=== PATIENT | female | born 1965 | race Caucasian/White ===

== ENCOUNTER 2020-06-12 19:37 | Emergency (ER) | payer MEDICARE, OTHER ==
[~2020-06-12 19:37] MED LIST: ACID REDUCER150 MG PO; ASPIR 8181 MG PO; ASPIR-LOW81 MG PO; ATORVASTATIN CA80 MG PO; CIPRO500 MG PO; DOXYCYCLINE MO100 MG PO; EFFEXOR XR 150150 MG PO; ELAVIL 25 MG TA25 MG PO; ESTRACE1 MG PO; FLEXERIL 10 MG10 MG PO; GABAPENTIN800 MG PO; HUMALOG 10100 UNITS/ SC; KLONOPIN TAB 00.5 MG PO; LANTUS INS100 UTS/M1 SQ; LANTUS100 UNIT/1 SQ; LEVAQUIN500 MG PO; LEVOFLOXACIN250 MG PO; LEVOFLOXACIN500 MG PO; NEURONTIN800 MG PO; ONDANSETRON HCL4 MG PO; PEPCID40 MG PO; PERCOCET 7.5-31 EACH PO; PLAVIX75 MG PO; PRAVACHOL40 MG PO; PRILOSEC OTC20 MG PO; ROBAXIN 750 MG750 MG PO; ROBAXIN-750750 MG PO; SERTRALINE HCL100 MG PO; SERTRALINE HCL50 MG PO; TRAZODONE HCL50 MG PO; VITAMIN D5000 UNIT PO; ZANAFLEX4 M1 PO; ZOFRAN ODT 4 MG4 MG SL; ZOLOFT100 MG PO
[2020-06-12 21:24] LABS: HEMOGLOBIN 12.4 gm/dl (12.3-15.3); RED BLOOD COUNT 4.32 M/UL (4.00-5.10); WHITE BLOOD COUNT 8.2 K/UL (4.5-11.0)
[2020-06-12 21:35] LABS: BUN/CREATININE RATIO 14 (0-10)
[2020-06-12] MEDS ORDERED: ZOFRAN ODT 4 MG4 MG PO (23:40)
[2020-06-12] MEDS ORDERED: ZITHROMAX250 MG PO (23:40)
[2020-06-12] MEDS ORDERED: TESSALON PERLE100 MG PO (23:40)
== END 2020-06-13 00:25 | disposition home or self-care (01) ==
LOC: ER1 19:37
PROVIDERS: Emergency Medicine
DX: U07.1 COVID-19 (principal); J12.82 Pneumonia due to coronavirus disease 2019; J44.0 Chronic obstructive pulmonary disease with (acute) lower respiratory infection; J18.9 Pneumonia, unspecified organism; I11.9 Hypertensive heart disease without heart failure; E11.9 Type 2 diabetes mellitus without complications
CPT/HCPCS: 71045; 80053; 82550; 82553; 83735; 83874; 84484; 85025; 93005; 96374; 96375; 99285; J1885; J2405

== ENCOUNTER → 2020-09-03 | Outpatient (CLI) | payer MEDICARE, OTHER ==
[~2020-09-03] MED LIST changes: +TESSALON PERLE100 MG PO; +ZITHROMAX250 MG PO; +ZOFRAN ODT 4 MG4 MG PO
== END ==
LOC: EMI 09:28
DX: M54.16 Radiculopathy, lumbar region (principal)
CPT/HCPCS: 72148

== ENCOUNTER 2021-11-25 10:58 | Inpatient (IN) | payer MEDICARE, OTHER ==
[~2021-11-25] VITALS: Ht 167.6 cm; Wt 79.4 kg
[~2021-11-25 10:58] MED LIST changes: +AMITRIPTYLINE H25 MG PO; +CLOPIDOGREL75 MG PO; -ELAVIL 25 MG TA25 MG PO; -ROBAXIN-750750 MG PO
[2021-11-25 12:36] LABS: HEMOGLOBIN 13.8 gm/dl (12.3-15.3); RED BLOOD COUNT 4.83 M/UL (4.00-5.10); WHITE BLOOD COUNT 22.3 K/UL (4.5-11.0)
[2021-11-25 12:55] LABS: BUN/CREATININE RATIO 12 (0-10)
[2021-11-25] MEDS ORDERED: ZOFRAN ODT 4 MG4 MG PO (18:08)
[2021-11-25] MEDS ORDERED: ZEBETA 5 MG TAB5 MG PO (18:08)
[2021-11-25 18:09] LABS: BORDETELLA PARAPERTUSSIS Not Detected (Not Detectd); BORDETELLA PERTUSSIS Not Detected (Not Detectd); CHLAMYDIA PNEUMONIAE Not Detected (Not Detectd); CORONAVIRUS HKU1 Not Detected (Not Detectd); CORONAVIRUS NL63 Not Detected (Not Detectd); CORONAVIRUS OC43 Not Detected (Not Detectd); CORONOAVIRUS 229E Not Detected (Not Detectd); HUMAN METAPNEUMOVIRUS Not Detected (Not Detectd); HUMAN RHINOVIRUS/ENTEROVIRUS Not Detected (Not Detectd); INFLUENZA A Not Detected (Not Detectd); INFLUENZA B Not Detected (Not Detectd); MYCOPLASMA PNEUMONIAE Not Detected (Not Detectd); PARAINFLUENZA VIRUS 1 Not Detected (Not Detectd); PARAINFLUENZA VIRUS 2 Not Detected (Not Detectd); PARAINFLUENZA VIRUS 3 Not Detected (Not Detectd); PARAINFLUENZA VIRUS 4 Not Detected (Not Detectd); RESPIRATORY SYNCYTIAL VIRUS Not Detected (Not Detectd)
[2021-11-25] MEDS ORDERED: HUMALOG100 UNIT/1 SC (18:10)
[2021-11-25] MEDS ORDERED: ASPIRIN EC81 MG PO (18:11)
[2021-11-25 19:07] LABS: SARS-CoV-2 NOT DETECTED (Not Detectd)
[2021-11-26 05:32] LABS: HEMOGLOBIN 11.7 gm/dl (12.3-15.3); RED BLOOD COUNT 3.92 M/UL (4.00-5.10); WHITE BLOOD COUNT 15.4 K/UL (4.5-11.0)
[2021-11-27 03:11] LABS: HEMOGLOBIN 11.6 gm/dl (12.3-15.3); RED BLOOD COUNT 3.97 M/UL (4.00-5.10); WHITE BLOOD COUNT 12.2 K/UL (4.5-11.0)
[2021-11-27 04:05] LABS: BUN/CREATININE RATIO 17 (0-10)
--- NOTE | 2021-11-27 10:14 | NUR ---
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
[2021-11-28 03:24] LABS: HEMOGLOBIN 11.7 gm/dl (12.3-15.3); RED BLOOD COUNT 3.87 M/UL (4.00-5.10)
[2021-11-28 03:41] LABS: BUN/CREATININE RATIO 26 (0-10)
[2021-11-29 02:22] LABS: HEMOGLOBIN 12.5 gm/dl (12.3-15.3); RED BLOOD COUNT 4.22 M/UL (4.00-5.10); WHITE BLOOD COUNT 14.2 K/UL (4.5-11.0)
[2021-11-29 14:10] LABS: ORGANISM ID Not indicated. (.); SPECIMEN SOURCE Urine (.); STREPTOCOCCUS PNEUMONIAE AG Negative (Negative)
[2021-11-29] MEDS ORDERED: PROAIR HFA8.5 GM INH (19:36)
[2021-11-29] MEDS ORDERED: NICOTINE PATCH1 EAC2 TD (19:36)
[2021-11-29] MEDS ORDERED: IPRAT-ALBUT 0.5-3 ML NEB (19:36)
[2021-11-29] MEDS ORDERED: LEVOFLOXACIN750 MG PO (19:36)
[2021-11-29] MEDS ORDERED: PREDNISONE 10 M10 MG GT (20:13)
== END 2021-11-29 21:40 | disposition home or self-care (01) | DRG 871 ==
LOC: ER1 10:58 → PROG CARE 17:43 → CDU 17:43 → PROG CARE 11-26 02:43
PROVIDERS: Internal Medicine Pulmonary Disease; Physician Assistant; ADMIT Internal Medicine Infectious Disease
PROC: 3E03329 Introduction of Other Anti-infective into Peripheral Vein, Percutaneous Approach (ICD-10-PCS; principal; 2021-11-25)
PROC: B24BZZZ Ultrasonography of Heart with Aorta (ICD-10-PCS; 2021-11-26)
DX: A41.9 Sepsis, unspecified organism (principal); J18.9 Pneumonia, unspecified organism; J96.21 Acute and chronic respiratory failure with hypoxia; J96.22 Acute and chronic respiratory failure with hypercapnia; J44.1 Chronic obstructive pulmonary disease with (acute) exacerbation; J44.0 Chronic obstructive pulmonary disease with (acute) lower respiratory infection; I50.32 Chronic diastolic (congestive) heart failure; E87.2 Acidosis; U07.0 Vaping-related disorder; J68.8 Other respiratory conditions due to chemicals, gases, fumes and vapors; I11.0 Hypertensive heart disease with heart failure; R65.20 Severe sepsis without septic shock; Z71.6 Tobacco abuse counseling; K21.9 Gastro-esophageal reflux disease without esophagitis; R11.2 Nausea with vomiting, unspecified; E78.5 Hyperlipidemia, unspecified; F41.9 Anxiety disorder, unspecified; E83.42 Hypomagnesemia; E10.65 Type 1 diabetes mellitus with hyperglycemia; T38.0X5A Adverse effect of glucocorticoids and synthetic analogues, initial encounter; I25.10 Atherosclerotic heart disease of native coronary artery without angina pectoris; F17.210 Nicotine dependence, cigarettes, uncomplicated; E87.5 Hyperkalemia; Z95.5 Presence of coronary angioplasty implant and graft; Z87.19 Personal history of other diseases of the digestive system; Z87.11 Personal history of peptic ulcer disease; Z96.82 Presence of neurostimulator; Z86.14 Personal history of Methicillin resistant Staphylococcus aureus infection; Z88.8 Allergy status to other drugs, medicaments and biological substances; Z88.6 Allergy status to analgesic agent; Z79.01 Long term (current) use of anticoagulants; Z79.82 Long term (current) use of aspirin; Z79.4 Long term (current) use of insulin; Z82.3 Family history of stroke; Z82.49 Family history of ischemic heart disease and other diseases of the circulatory system; Z99.81 Dependence on supplemental oxygen; Z90.49 Acquired absence of other specified parts of digestive tract
CPT/HCPCS: ECHO; 36415; 36600; 71045; 71275; 80053; 81001; 82550; 82553; 82803; 82962; 83036; 83605; 83615; 83735; 83880; 84100; 84484; 85025; 85379; 85384; 86140; 87040; 87070; 87081; 87086; 87205; 87278; 87633; 87899; 93005; 93306; 94640; 94760; 96361; 96365; 96367; 96372; 96375; 99285; C9113; J1650; J1940; J1956; J2405; J2920; J3475; Q9967